=== PATIENT | female | born 1950 | race Caucasian/White ===

== ENCOUNTER 2022-12-14 13:22 | Emergency (ER) | payer MEDICARE ==
[~2022-12-14] VITALS: Ht 162.5 cm; Wt 90.7 kg
== END 2022-12-14 15:30 | disposition home or self-care (01) ==
LOC: ED 13:22
DX: S16.1XXA Strain of muscle, fascia and tendon at neck level, initial encounter (principal); S09.90XA Unspecified injury of head, initial encounter; R07.81 Pleurodynia; Z88.8 Allergy status to other drugs, medicaments and biological substances; W17.89XA Other fall from one level to another, initial encounter; Y93.89 Activity, other specified; Y92.89 Other specified places as the place of occurrence of the external cause; Y99.8 Other external cause status